=== PATIENT | female | born 1995 | race American Indian/Alaskan Native ===

== ENCOUNTER 2016-10-17 01:50 | Emergency (ER) | payer OTHER ==
[2016-10-17 02:31] VITALS: BP 150/80; PULSE 60; RESP 16; TEMP 98.4; O2SAT 100
--- NOTE | 2016-10-17 02:39 | ED PDOC ---
HPI: Female Pain Time Seen by Provider: 10/17/16 02:08 Chief Complaint (Nursing): Female Genitourinary Chief Complaint (Provider): vaginal discharge History Per: Patient History/Exam Limitations: no limitations Onset/Duration Of Symptoms: Days (2), Waxing/Waning Current Symptoms Are (Timing): Still Present Additional History Per: Patient Additional Complaint(s): 21 y/o female presents for eval of non odorous, clear vaginal discharge x 2 days. Patient states she looked these symptoms up and found that it could be a sign of early ; so she took a test and it was positive. LMP 10/05/16. Denies fever, nausea/vomiting, abdominal pain, pelvic pain, vaginal bleeding, dysuria, hematuria, vaginal itching/burning/irritation. Patient states she has had history of STDs, but symptoms different. Abnormal Vaginal Bleeding: No Past Medical History Reviewed: Historical Data, Nursing Documentation, Vital Signs Vital Signs: Last Vital Signs Temp 98.4 F 10/17/16 02:15 Pulse 60 10/17/16 02:15 Resp 16 10/17/16 02:15 BP 150/80 10/17/16 02:15 Pulse Ox 100 10/17/16 02:15 - Medical History PMH: No Chronic Diseases - Surgical History Surgical History: No Surg Hx - Family History Family History: States: Unknown Family Hx - Home Medications Home Medications: Ambulatory Orders Medication Instructions Recorded Albuterol HFA [Ventolin HFA 90 2 puff IH [id number] PRN #30 puff 03/08/15 mcg/actuation (8 g)] Ondansetron [Zofran Odt] 4 mg PO TID PRN #15 odt 03/08/15 - Allergies Allergies/Adverse Reactions: Allergies Allergy/AdvReac Type Severity Reaction Status Date / Time No Known Allergies Allergy Verified 03/08/15 09:18 Review of Systems ROS Statement: Except As Marked, All Systems Reviewed And Found Negative Genitourinary Female: Positive for: Vaginal Discharge Physical Exam - Reviewed Nursing Documentation Reviewed: Yes Vital Signs Reviewed: Yes - Physical Exam Appears: Positive for: Well, Non-toxic, No Acute Distress Head Exam: Positive for: ATRAUMATIC, NORMAL INSPECTION, NORMOCEPHALIC Skin: Positive for: Normal Color Eye Exam: Positive for: Normal appearance ENT: Positive for: Normal ENT Inspection Cardiovascular/Chest: Positive for: Regular Rate, Rhythm Respiratory: Positive for: Normal Breath Sounds Gastrointestinal/Abdominal: Positive for: Normal Exam Pelvic Exam: Positive for: External Exam Normal, Speculum Exam Normal, No Cerv. Motion Tender, Other (exam chaperoned by [facility] tech). Negative for: Active Bleeding, Tender Adnexa, Tender Uterus Back: Positive for: Normal Inspection Extremity: Positive for: Normal ROM Neurologic/Psych: Positive for: Alert, Oriented - Laboratory Results Urine POC: Negative Urine dip results: Negative for: Leukocyte Esterase, Blood, Nitrate, Ketones, Glucose - ECG O2 Sat by Pulse Oximetry: 100 - Progress ED Course And Treament: Patient educated on findings, cultures obtained. Advised follow up Staffing Branch Manager in 2-3 days. Return to ED for worsening/concerning symptoms. Disposition - Clinical Impression Clinical Impression: Negative test, History of vaginal discharge - Patient ED Disposition Is Patient to be Admitted: No Counseled Patient/Family Regarding: Studies Performed, Diagnosis, Need For Followup - Disposition Disposition: Routine/Home Disposition Time: 03:12 Condition: GOOD Instructions: Vaginal Discharge (ED)
== END 2016-10-17 03:18 | disposition home or self-care (01) ==
LOC: H.ER 01:50
DX: N89.8 Other specified noninflammatory disorders of vagina (principal)

== ENCOUNTER 2016-10-19 21:44 | Emergency (ER) | payer OTHER ==
[2016-10-19 22:08] VITALS: BP 142/61; PULSE 72; RESP 16; TEMP 98.5; O2SAT 98
--- NOTE | 2016-10-19 22:28 | ED PDOC ---
HPI: Female Pain Time Seen by Provider: 10/19/16 22:16 Chief Complaint (Nursing): Female Genitourinary Chief Complaint (Provider): possible History Per: Patient Additional Complaint(s): Patient presents to emergency department requesting test. She states that she took a test at home that was positive a few days ago. She has a very irregular cycle and is not sure if she is . She denies any bleeding or pain at present. Past Medical History Reviewed: Historical Data, Nursing Documentation, Vital Signs Vital Signs: Last Vital Signs Temp 98.5 F 10/19/16 22:05 Pulse 72 10/19/16 22:05 Resp 16 10/19/16 22:05 BP 142/61 10/19/16 22:05 Pulse Ox 98 10/19/16 22:05 - Medical History PMH: No Chronic Diseases - Surgical History Surgical History: No Surg Hx - Family History Family History: States: No Known Family Hx - Living Arrangements Living Arrangements: With Family - Social History Current smoker - smoking cessation education provided: No Alcohol: None Drugs: Denies - Home Medications Home Medications: Ambulatory Orders Medication Instructions Recorded Albuterol HFA [Ventolin HFA 90 2 puff IH [id number] PRN #30 puff 03/08/15 mcg/actuation (8 g)] Ondansetron [Zofran Odt] 4 mg PO TID PRN #15 odt 03/08/15 - Allergies Allergies/Adverse Reactions: Allergies Allergy/AdvReac Type Severity Reaction Status Date / Time No Known Allergies Allergy Verified 03/08/15 09:18 Review of Systems ROS Statement: Except As Marked, All Systems Reviewed And Found Negative Genitourinary Female: Positive for: Other (requesting test) Physical Exam - Reviewed Nursing Documentation Reviewed: Yes Vital Signs Reviewed: Yes - Physical Exam Appears: Positive for: Well, Non-toxic, No Acute Distress Cardiovascular/Chest: Positive for: Regular Rate, Rhythm Respiratory: Positive for: Normal Breath Sounds Gastrointestinal/Abdominal: Positive for: Normal Exam, Soft. Negative for: Tenderness Neurologic/Psych: Positive for: Alert, Oriented - Laboratory Results Urine POC: Negative - ECG O2 Sat by Pulse Oximetry: 98 Pulse Ox Interpretation: Normal Medical Decision Making Medical Decision Makin21 year old here for test Plan: Urine and serum beta Patient aware that both blood and urine tests are negative for . She was [facility] follow-up. Disposition - Clinical Impression Clinical Impression: Negative test, Normal exam - Patient ED Disposition Is Patient to be Admitted: No Counseled Patient/Family Regarding: Studies Performed, Diagnosis, Need For Followup - Disposition [facility]errals[facility] Disposition: Routine/Home Disposition Time: 23:34 Condition: STABLE Additional Instructions: Follow up with her chocolate finisher as soon as possible and discuss the possibility of starting control pills to regulate her cycle. Instructions: Normal Exam (ED)
== END 2016-10-19 23:41 | disposition home or self-care (01) ==
LOC: H.ER 21:44
DX: Z32.02 Encounter for pregnancy test, result negative (principal)

== ENCOUNTER 2017-08-17 16:05 | Emergency (ER) | payer SELFPAY ==
[2017-08-17 16:27] VITALS: BP 127/72; PULSE 89; RESP 18; TEMP 98.2; O2SAT 97
--- NOTE | 2017-08-17 18:40 | ED PDOC ---
HPI: General Adult Time Seen by Provider: 08/17/17 17:14 Chief Complaint (Nursing): Female Genitourinary Chief Complaint (Provider): Requesting test History Per: Patient History/Exam Limitations: no limitations Additional Complaint(s): Patient presents to the ER requesting test. LMP was 07/05/17. Otherwise: (-) urinary symptoms, (-) abdominal pain, (-) vaginal bleeding, (-) nausea/vomiting. PMD: Provider TBD Past Medical History Reviewed: Historical Data, Nursing Documentation, Vital Signs Vital Signs: Last Vital Signs Temp 98.2 F 08/17/17 16:24 Pulse 89 08/17/17 16:24 Resp 18 08/17/17 16:24 BP 127/72 08/17/17 16:24 Pulse Ox 97 08/17/17 18:42 - Family History Family History: States: Unknown Family Hx - Home Medications Home Medications: Ambulatory Orders Medication Instructions Recorded Albuterol HFA [Ventolin HFA 90 2 puff IH [id number] PRN #30 puff 03/08/15 mcg/actuation (8 g)] Ondansetron [Zofran Odt] 4 mg PO TID PRN #15 odt 03/08/15 - Allergies Allergies/Adverse Reactions: Allergies Allergy/AdvReac Type Severity Reaction Status Date / Time No Known Allergies Allergy Verified 08/17/17 16:24 Review of Systems ROS Statement: Except As Marked, All Systems Reviewed And Found Negative Gastrointestinal: Negative for: Nausea, Vomiting, Abdominal Pain Genitourinary Female: Negative for: Dysuria, Frequency, Incontinence, Hematuria , Vaginal Bleeding Physical Exam - Reviewed Nursing Documentation Reviewed: Yes Vital Signs Reviewed: Yes - Physical Exam Comments: GENERAL APPEARANCE: Patient is awake, alert, oriented x 3, in no acute distress. SKIN: Warm, dry; (-) cyanosis. EYES: (-) conjunctival pallor, (-) scleral icterus. ENMT: Mucous membranes moist. NECK: (-) tenderness, (-) stiffness, (-) lymphadenopathy. CHEST AND RESPIRATORY: (-) rales, (-) rhonchi, (-) wheezes; breath sounds equal bilaterally. HEART AND CARDIOVASCULAR: (-) irregularity; (-) murmur, (-) gallop. ABDOMEN AND GI: (-) distention. Bowel sounds active; (-) tenderness, (-) guarding, (-) rebound, (-) palpable masses, (-) CVA tenderness. EXTREMITIES: (-) deformity, (-) edema, (+) distal pulses. NEURO AND PSYCH: Mental status as above; (-) focal findings. - Laboratory Results Urine POC: Negative - ECG O2 Sat by Pulse Oximetry: 97 (RA) Pulse Ox Interpretation: Normal Medical Decision Making Medical Decision Making: Time: 17:24 Plan: * POC urine On reevaluation, patient is resting comfortably in chair, in no acute distress. Urine HCG negative. Based on history, exam, and diagnostic results, plan will be for outpatient follow up with [facility]. Advised to follow up with beam carrier hauler pusher in 1-2 days without fail. Return to the emergency room at any time for any new or worsening symptoms. Patient states she fully agrees with and understands discharge instructions. States that she agrees with the plan and disposition. Verbalized and repeated discharge instructions and plan. I have given the patient opportunity to ask any additional questions. Scribe Attestation: Documented by Lenore Gonsalez, acting as a scribe for Shanna Mendoza PA-C Provider Scribe Attestation: All medical record entries made by the Scribe were at my direction and personally dictated by me. I have reviewed the chart and agree that the record accurately reflects my personal performance of the history, physical exam, medical decision making, and the department course for this patient. I have also personally directed, reviewed, and agree with the discharge instructions and disposition. Disposition - Clinical Impression Clinical Impression: test negative - Patient ED Disposition Is Patient to be Admitted: No Counseled Patient/Family Regarding: Studies Performed, Diagnosis, Need For Followup - Disposition Disposition: Routine/Home Disposition Time: 18:11 Condition: STABLE Additional Instructions: Follow up with your FACSIMILE OPERATOR in 2 days without fail. Forms: [employer] ([employer]) ([place]), [facility] ED School/Work Excuse - POA Present On Arrival: None
== END 2017-08-17 20:03 | disposition home or self-care (01) ==
LOC: H.ER 16:05
DX: Z32.02 Encounter for pregnancy test, result negative (principal)